=== PATIENT | female | born 1955 | race Caucasian/White ===

== ENCOUNTER → 2016-08-26 | Outpatient (CLI) | payer MEDICARE, OTHER ==
--- NOTE | 2016-08-26 13:42 | EST ---
DATE OF SERVICE: 08/26/2016 AGE: 61Y SEX: F HT: 64" WT: 225 lbs. Protocol Gregg: X Other: Stress Stage: 1 Dur. of Exercise: 5:00 *Heart Rate Blood Pressure *Rest: 101 Rest: 134/88 * *Max. Achieved: 140 Maximum BP: 169/93 85% PMHR: 137 100% PMHR: 161 *METS: 6.4 INDICATIONS: Chest pain. MEDICATIONS: Losartan, simvastatin, levothyroxine, Cymbalta, metformin, Abilify, vitamine, Januvia, Invokana. Patient was exercised for a total period of 5 minutes. Peak heart rate of 140 was achieved. Maximum blood pressure 169/93 mmHg was noted. Patient did not complain of any chest pain during the test. Test was terminated because patient got short of breath and tired. Resting EKG shows normal sinus rhythm with normal NE interval and QRS duration and normal ST-T waves. No ST-segment depression suggestive of ischemia is noted. IMPRESSION: 1. This stress test is not suggestive of ischemia. 2. Patient's exercise tolerance is below-average. 3. Patient did not complain of any anginal pain during the test.
== END | disposition home or self-care (01) ==
LOC: RADNMMAIN 09:53
PROVIDERS: ATTEND Family Medicine
DX: R07.89 Other chest pain (principal)
CPT/HCPCS: 93017

== ENCOUNTER → 2016-11-13 | Outpatient (CLI) | payer MEDICARE, OTHER ==
--- NOTE | 2016-11-13 12:20 | XR ---
EXAMINATION TYPE: XR chest 2V DATE OF EXAM: 11/13/2016 COMPARISON: Prior chest x-ray 12/22/2011 HISTORY: Chest pain TECHNIQUE: Frontal and lateral views of the chest are obtained. FINDINGS: There is no focal air space opacity, pleural effusion, or pneumothorax seen. The cardiac silhouette size is within normal limits. The osseous structures are intact. IMPRESSION: No acute cardiopulmonary process.
== END | disposition home or self-care (01) ==
LOC: RADXRMAIN 10:33
PROVIDERS: ATTEND Family Medicine
DX: R07.89 Other chest pain (principal)
CPT/HCPCS: 71020

== ENCOUNTER → 2018-01-25 | Outpatient (CLI) | payer MEDICARE, OTHER ==
--- NOTE | 2018-01-26 10:43 | MM ---
Reason for exam: screening (asymptomatic). Last mammogram was performed 9 years and 5 months ago. History: Patient is postmenopausal. Benign stereotactic core biopsy of the right breast, January 04, 2002. Benign stereotactic core biopsy of the right breast, December 04, 2000. 2 core biopsies of the right breast. Physical Findings: A clinical breast exam by your physician is recommended on an annual basis and results should be correlated with mammographic findings. MG 3D Screening Mammo W/Cad Bilateral CC and MLO view(s) were taken. Prior study comparison: August 18, 2008, right breast mammogram dig work up. August 14, 2008, bilateral digital screening mammogram. There are scattered fibroglandular densities. There is no discrete abnormality. ASSESSMENT: Negative, BI-RAD 1 RECOMMENDATION: Routine screening mammogram of both breasts in 1 year.
== END | disposition home or self-care (01) ==
LOC: RADMAMWWP 09:33
PROVIDERS: ATTEND Family Medicine
DX: Z12.31 Encounter for screening mammogram for malignant neoplasm of breast (principal)
CPT/HCPCS: 77063; 77067

== ENCOUNTER 2018-01-27 06:59 | Day surgery (SDC) | payer MEDICARE, OTHER ==
[2018-01-26 08:56] VITALS: BMI 36.7
--- NOTE | 2018-01-26 23:35 | P.GSHP ---
History of Present Illness H&P Date: 01/27/18 CHIEF COMPLAINT: Colon screen HISTORY OF PRESENT ILLNESS: The patient is a 62-year-old female who presents for colon screen. Lower endoscopy was offered for further evaluation and management. PAST MEDICAL HISTORY: Please see list. PAST SURGICAL HISTORY: Please see list. MEDICATIONS: Please see list. ALLERGIES: Please see list. SOCIAL HISTORY: No illicit drug use FAMILY HISTORY: No reports of Crohn disease or ulcerative colitis. REVIEW OF ORGAN SYSTEMS: CONSTITUTIONAL: No reports of fevers or chills. PHYSICAL EXAM: VITAL SIGNS: Stable GENERAL: Well-developed pleasant in no acute distress. HEENT: No scleral icterus. Extraocular movements grossly intact. Moist buccal mucosa. NECK: Supple without lymphadenopathy. CHEST: Unlabored respirations. Equal bilateral excursions. CARDIOVASCULAR: Regular rate and rhythm. Distal 2+ pulses. ABDOMEN: Soft, nontender, nondistended. MUSCULOSKELETAL: No clubbing, cyanosis, or edema. ASSESSMENT: 1. Colon screen. PLAN: 1. Recommend proceeding with a lower endoscopy Past Medical History Past Medical History: Asthma, Diabetes Mellitus, Fibromyalgia, GERD/Reflux, Hyperlipidemia, Hypertension, Sleep Apnea/CPAP/BIPAP, Thyroid Disorder Additional Past Medical History / Comment(s): migraines, cellulitis rt ankle after surgery History of Any Multi-Drug Resistant Organisms: None Reported Past Surgical History: Appendectomy, Cholecystectomy, Hysterectomy, Orthopedic Surgery Additional Past Surgical History / Comment(s): rt knee arthroscopy, surgery rt ankle (fx) Past Anesthesia/Blood Transfusion Reactions: Postoperative Nausea & Vomiting ( PONV) Smoking Status: Never smoker - Past Family History Father Family Medical History: Cancer Mother Family Medical History: Cancer Medications and Allergies Home Medications Medication Instructions Recorded Confirmed Type ARIPiprazole [Abilify] 15 mg PO DAILY 10/21/16 01/26/18 History Albuterol Inhaler [Ventolin Hfa 1 - 2 puff INHALATION Q6HR PRN 10/21/16 History Inhaler] Baclofen 10 mg PO TID 10/21/16 01/26/18 History Canagliflozin [Invokana] 300 mg PO DAILY 10/21/16 01/26/18 History DULoxetine HCL [Cymbalta] 60 mg PO DAILY 10/21/16 01/26/18 History Gabapentin [Neurontin] 100 mg PO TID 10/21/16 01/26/18 History Levothyroxine Sodium 125 mcg PO DAILY 10/21/16 01/26/18 History Liraglutide [Victoza 3-Andrey] 1.2 mg SQ DAILY 10/21/16 01/26/18 History Omeprazole 20 mg PO BID 10/21/16 01/26/18 History Simvastatin [Zocor] 40 mg PO HS 10/21/16 01/26/18 History metFORMIN HCL [Glucophage] 500 mg PO BID 10/21/16 01/26/18 History sitaGLIPtin [Januvia] 100 mg PO DAILY 10/21/16 01/26/18 History traZODone HCL 150 mg PO HS 10/21/16 01/26/18 History Ibuprofen [Motrin] 800 mg PO TID PRN 01/26/18 01/26/18 History Allergies Allergy/AdvReac Type Severity Reaction Status Date / Time JOSE Inhibitors AdvReac Rash/Hives Verified 01/26/18 08:38 morphine AdvReac Rash/Hives Verified 01/26/18 08:38 penicillin G AdvReac Rash/Hives Verified 01/26/18 08:38 rofecoxib [From Vioxx] AdvReac Rash/Hives Verified 01/26/18 08:38 Sulfa (Sulfonamide AdvReac Rash/Hives Verified 01/26/18 08:38 Antibiotics)
[~2018-01-27 06:59] MED LIST: LACTATED RINGERS 1,000 ML IV SCH
[2018-01-27] MEDS ORDERED: LIDOCAINE 1% 20 ML VIAL (10MG/ML) FOR IV START INTRADERMA ONE (07:31)
[2018-01-27 07:33] LABS: Glucose,Whole Blood 183 mg/dL (75-99)
[2018-01-27 07:35] VITALS: RESP 16; TEMP 98.6
[2018-01-27] MEDS ORDERED: PROPOFOL 10 MG/ML 20 ML VIAL IV ONE (07:53)
[2018-01-27] MEDS ORDERED: LIDOCAINE 1% INJ 10MG/ML (20 ML MDV) ONE (07:53)
--- NOTE | 2018-01-27 08:11 | P.PCN ---
Date of Procedure: 01/27/18 Description of Procedure: PREOPERATIVE DIAGNOSIS: Colonoscopy screening, first POSTOPERATIVE DIAGNOSIS: Colonoscopy screening, first Multiple tubular adenomas throughout the colon. Internal hemorrhoids, grade 1 OPERATION: Colonoscopy to the ileocecal valve and appendiceal orifice. Colonoscopy with multiple cold forceps biopsies. SURGEON: Liana Hernandez MD. ANESTHESIA: MAC. INDICATIONS: The patient is a 62-year-old female who presents for colonoscopy screening. Benefits and risks were described and informed consent was obtained. DESCRIPTION OF PROCEDURE: The patient had undergone Gatorade, MiraLAX and Dulcolax prep. She had been brought into the operating room and laid in the left lateral decubitus position. After adequate intravenous sedation, the rectum was examined with 2% lidocaine jelly. No external hemorrhoids were encountered. The rectal tone was within normal limits. No lesions were palpated in the rectal vault. An Olympus colonoscope was advanced until the ileocecal valve and appendiceal orifice were clearly viewed. The prep was good with visualization of the mucosal folds. The scope was removed with visualization of each mucosal fold. No scattered diverticulosis was encountered. Multiple colonic polyps were found and cold forcep biopsy. No evidence of focal colitis was found. Retroflexion of the scope demonstrated grade 1 internal hemorrhoids without active bleeding or inflammation. The colon was desufflated. The patient had tolerated the procedure well. Withdrawal time was over 6 minutes. FINDINGS: Internal hemorrhoids, grade 1 No external hemorrhoids No arteriovenous malformations. No scattered diverticulosis Removal of 2 polyps: - Cold forceps biopsy at 10 cm from the anal verge, 4 mm polyp. - Cold forceps biopsy at proximal transverse colon, 4 mm polyp. No focal colitis. RECOMMENDATIONS: Follow-up colonoscopy 5 years, 2022 Plan - Discharge Summary New Discharge Prescriptions: No Action ARIPiprazole [Abilify] 15 mg PO DAILY Omeprazole 20 mg PO BID Simvastatin [Zocor] 40 mg PO HS Liraglutide [Victoza 3-Andrey] 1.2 mg SQ DAILY Albuterol Inhaler [Ventolin Hfa Inhaler] 1 - 2 puff INHALATION Q6HR PRN PRN Reason: Shortness Of Breath traZODone HCL 150 mg PO HS metFORMIN HCL [Glucophage] 500 mg PO BID sitaGLIPtin [Januvia] 100 mg PO DAILY DULoxetine HCL [Cymbalta] 60 mg PO DAILY Baclofen 10 mg PO TID Levothyroxine Sodium 125 mcg PO DAILY Gabapentin [Neurontin] 100 mg PO TID Canagliflozin [Invokana] 300 mg PO DAILY Ibuprofen [Motrin] 800 mg PO TID PRN PRN Reason: Pain LORazepam [Ativan] 1 tab PO BID Discharge Medication List ARIPiprazole [Abilify] 15 mg PO DAILY 10/21/16 [History] Albuterol Inhaler [Ventolin Hfa Inhaler] 1 - 2 puff INHALATION Q6HR PRN [History] Baclofen 10 mg PO TID 10/21/16 [History] Canagliflozin [Invokana] 300 mg PO DAILY 10/21/16 [History] DULoxetine HCL [Cymbalta] 60 mg PO DAILY 10/21/16 [History] Gabapentin [Neurontin] 100 mg PO TID 10/21/16 [History] Levothyroxine Sodium 125 mcg PO DAILY 10/21/16 [History] Liraglutide [Victoza 3-Andrey] 1.2 mg SQ DAILY 10/21/16 [History] Omeprazole 20 mg PO BID 10/21/16 [History] Simvastatin [Zocor] 40 mg PO HS 10/21/16 [History] metFORMIN HCL [Glucophage] 500 mg PO BID 10/21/16 [History] sitaGLIPtin [Januvia] 100 mg PO DAILY 10/21/16 [History] traZODone HCL 150 mg PO HS 10/21/16 [History] Ibuprofen [Motrin] 800 mg PO TID PRN 01/26/18 [History] LORazepam [Ativan] 1 tab PO BID 01/27/18 [History]
[2018-01-27 08:23] LABS: Glucose,Whole Blood 173 mg/dL (75-99)
[2018-01-27 08:27] VITALS: BP 159/89; PULSE 87
== END 2018-01-27 08:56 | disposition home or self-care (01) ==
LOC: ORWHC2ENDO 06:59
PROVIDERS: ATTEND Surgery Plastic and Reconstructive Surgery
DX: Z12.11 Encounter for screening for malignant neoplasm of colon (principal); D12.3 Benign neoplasm of transverse colon; K63.5 Polyp of colon; K64.0 First degree hemorrhoids; J45.909 Unspecified asthma, uncomplicated; E11.9 Type 2 diabetes mellitus without complications; M79.7 Fibromyalgia; K21.9 Gastro-esophageal reflux disease without esophagitis; E78.5 Hyperlipidemia, unspecified; I10 Essential (primary) hypertension; E07.9 Disorder of thyroid, unspecified; G47.33 Obstructive sleep apnea (adult) (pediatric); G43.909 Migraine, unspecified, not intractable, without status migrainosus; Z99.89 Dependence on other enabling machines and devices; Z79.84 Long term (current) use of oral hypoglycemic drugs; Z79.899 Other long term (current) drug therapy; Z79.890 Hormone replacement therapy; Z90.49 Acquired absence of other specified parts of digestive tract; Z88.5 Allergy status to narcotic agent; Z88.0 Allergy status to penicillin; Z88.2 Allergy status to sulfonamides; Z88.8 Allergy status to other drugs, medicaments and biological substances; Z88.6 Allergy status to analgesic agent
CPT/HCPCS: 88305; 45380; J2001; J2704

== ENCOUNTER → 2019-12-07 | Outpatient (CLI) | payer MEDICARE, OTHER ==
--- NOTE | 2019-12-08 07:35 | MM ---
Reason for exam: screening (asymptomatic). Last mammogram was performed 1 year and 10 months ago. History: Patient is postmenopausal. Benign stereotactic core biopsy of the right breast, January 04, 2002. Benign stereotactic core biopsy of the right breast, December 04, 2000. 2 core biopsies of the right breast. Took hormonal contraceptives for 1 year. Physical Findings: A clinical breast exam by your physician is recommended on an annual basis and results should be correlated with mammographic findings. MG 3D Screening Mammo W/Cad Bilateral CC and MLO view(s) were taken. Prior study comparison: January 25, 2018, bilateral MG 3d screening mammo w/cad. August 18, 2008, right breast mammogram dig work up. There are scattered fibroglandular densities. There is chronic nodularity in the posterior left breast slight medial aspect. There is no discrete abnormality. ASSESSMENT: Negative, BI-RAD 1 RECOMMENDATION: Routine screening mammogram of both breasts in 1 year.
== END | disposition home or self-care (01) ==
LOC: RADMAMWWP 09:19
PROVIDERS: ATTEND Family Medicine
DX: Z12.31 Encounter for screening mammogram for malignant neoplasm of breast (principal)
CPT/HCPCS: 77063; 77067

== ENCOUNTER → 2020-07-31 | Outpatient (CLI) | payer MEDICARE, OTHER | END | disposition home or self-care (01) | LOC: LABWHC1 16:28 | PROVIDERS: ATTEND Family Medicine | DX: Z20.822 Contact with and (suspected) exposure to COVID-19 (principal); R05 Cough | CPT/HCPCS: U0003; U0005 ==

== ENCOUNTER → 2021-06-18 | Outpatient (CLI) | payer MEDICARE, OTHER ==
--- NOTE | 2021-06-18 15:33 | XR ---
Left shoulder HISTORY: Left shoulder pain 4 views of left shoulder, no comparisons Acromioclavicular joint shows mild arthropathy change. Distal acromial spur is suspected. Alignment, bone mineralization maintained. Some mild spurring present at the glenohumeral joint. Left lung apex as visualized is normal. IMPRESSION: Suspect some osteoarthritic change, correlate for impingement.
== END | disposition home or self-care (01) ==
LOC: RADXRMAIN 15:16
PROVIDERS: ATTEND Family Medicine
DX: M25.512 Pain in left shoulder (principal)

== ENCOUNTER → 2021-09-10 | Outpatient (CLI) | payer MEDICARE, OTHER ==
--- NOTE | 2021-09-11 12:16 | MM ---
Reason for exam: screening (asymptomatic). Last mammogram was performed 1 year and 9 months ago. History: Patient is postmenopausal. Benign stereotactic core biopsy of the right breast, January 04, 2002. Benign stereotactic core biopsy of the right breast, December 04, 2000. 2 core biopsies of the right breast. Took hormonal contraceptives for 1 year. Physical Findings: A clinical breast exam by your physician is recommended on an annual basis and results should be correlated with mammographic findings. MG 3D Screening Mammo W/Cad Bilateral CC and MLO view(s) were taken. Prior study comparison: December 07, 2019, bilateral MG 3d screening mammo w/cad. January 25, 2018, bilateral MG 3d screening mammo w/cad. There are scattered fibroglandular densities. There are few benign appearing round calcifications. There is no discrete abnormality. ASSESSMENT: Benign, BI-RAD 2 RECOMMENDATION: Routine screening mammogram of both breasts in 1 year.
== END | disposition home or self-care (01) ==
LOC: RADMAMWWP 16:47
PROVIDERS: ATTEND Family Medicine
DX: Z12.31 Encounter for screening mammogram for malignant neoplasm of breast (principal); Z78.0 Asymptomatic menopausal state
CPT/HCPCS: 77063; 77067

== ENCOUNTER → 2021-10-24 | Outpatient (CLI) | payer MEDICARE, OTHER ==
[2021-10-24 13:18] VITALS: BP 129/64; PULSE 85; RESP 18; TEMP 98
--- NOTE | 2021-10-24 13:19 | P.PAINPG ---
PQRS Measure Charge Sheet Comment: HISTORY OF PRESENT ILLNESS: 66 yr old female as a referral from Dr. Poon or severe and chronic cervical pain secondary to DDD, neuroforaminal stenoses, spinal stenosis, retrolisthesis and facet arthropathy for evaluation. She states her pain level is 6 out of 10 in intensity, sharp in the mid to lower aspects of her cervical spine with radiation of pain to the left shoulder and left upper extremity. Pain is provoked with extension and overhead reaching. Pain is relieved with medications (tramadol from Dr. Poon), Salon Pas patches, ice, heat, physical therapy in the past but was told to stop due to a rotator cuff tear, home stretching regimen, repositioning and rest. Past Medical History: Asthma, Diabetes Mellitus, Fibromyalgia, GERD/Reflux, Hyperlipidemia, Hypertension, Sleep Apnea/CPAP/BIPAP, Thyroid Disorder Past Surgical History: Appendectomy, Cholecystectomy, Hysterectomy, R Knee Arthroscopy, R Ankle Fx s/p repair Social History: Never smoker, No ETOH abuse, No illicit drug use. Family History: Father- CA. Mother- [place]. All: See list Meds: See list REVIEW OF ORGAN SYSTEMS: CONSTITUTIONAL: No fevers or chills. No recent weight loss. HEENT: No visual acuity loss, eye pain, difficulties with hearing. No nosebleeds. No difficulty swallowing. RESPIRATORY: Denies any troubles with breathing or dyspnea on exertion. CARDIOVASCULAR: Denies any chest pain, palpitations, or recent heart attacks. GASTROINTESTINAL: Denies fatty food intolerance. Has change in bowel habits and gas bloat. GENITOURINARY: Denies any blood in urine. Has increased urinary frequency. NEUROLOGICAL: + numbness and tingling along the distal extremities. No seizure disorders or headaches. MUSCULOSKELETAL: + back pain SKIN: No skin cancer. No rash. PSYCHIATRIC: Denies current depression or suicidal thoughts. ENDOCRINE: Denies current thyroid disorders. Denies any blood sugar glucose intolerance. HEME/LYMPHATIC: Denies any lumps and bumps around the neck. History of deep venous thrombosis. ALLERGY/IMMUNOLOGY: No immunoglobulin therapy. No immune deficiencies. BREAST: Denies current breast lumps, pain or nipple discharge. Physical Examinations : Constitutional : Cooperative , not in acute distress . HEENT: Neck supple. No Lymphadenopathy. Normal thyroid size . Eyes no ptosis , no icterus, no photophobia . Hearing intact. Normal oropharynx. No Thrush. Respiratory : Chest clear to auscultations bilaterally. No wheezing. No rhonchi. Cardiovascular : Regular rate and rhythm , S1 / S2. No S3 . No S4. Gastrointestinal : Abdomen soft. No tenderness. Bowel sounds x 4. No organomegaly . Genitourinary : Deferred. Neurologic : Cranial nerve II to XII intact. No focal neurological deficits. Psychiatric : alert & oriented x 3. Matching mood & appropriate affect. Judgment & insight intact. Lymphatic No Lymphadenopathy. Musculoskeletal : Cervical Spine Motor strength in the deltoid and biceps: Normal right side. Normal Left side Motor strength biceps and the wrist extensors: Normal right side . Normal left side Motor strength in the triceps muscle: Normal right side. Normal left side Deep tendon reflexes: Normal at the bi ceps. Normal at Brachioradialis. Normal at triceps Vertebral body TTP over C6, C7 Cervical facet loading test: positive bilaterally Spurling test: positive Neck distraction test: positive Matilde sign: positive bilaterally Lumbar spine Motor strength lower extremities ,thigh and legs 5/5 Right side , 5/5 Left side Deep tendon reflexes : Normal Knee Jerk. Normal Ankle Jerk Vertebral body tenderness over Lumbar facet Loading Test: positive Right / positive Left Range of motion of the lumbar spine Flexion 30 degrees, extension 10 degrees Straight Leg Raise test: Left/ Right positive at degree Neisha test: positive right / positive left. Severe tenderness over the Sacroiliac joint on the Right / Left sides Gaenslen test: positive bilaterally Seated flexion test: positive bilaterally. Sacral spine : Severe tenderness over the Sacroiliac joint: right side / left side Range of motion: Flexion of the lumbar spine <60 degrees Range of motion: Extension of the lumbar spine <20 degrees Gaenslen's Test positive Jerome's Test positive Neisha test: positive right side / left side Thigh Thrust Test Sacral Thrust Test Imaging: MRI without contrast of the cervical spine from 10/08/21 reviewed Assessment/ Plan : Cervical DDD, cervical stenosis Recommendation of L paramedian C6-C7 #1. May need a series of injections, up to 3 within a six-month timeframe, for optimal pain relief. Risks, benefits of procedure discussed and patient verbalized understanding. Denies aspirin or anti- coagulant us. Admits to a medical history of diabetes. Protocol for discontinuation/continuation of medications darlin procedure discussed. All questions answered. I have spent greater than 50 minutes on patient care today. Dr Nguyen was available by phone for the evaluation of this patient. The time was used to review the medical records including relevant urine studies and Prescription history (MAPs), review of the available imaging, evaluation and examination of the patient, coordination of care with the medical staff and if applicable referring physicians, as well as creation of the medical record PQRS Narrative: Smoking Status Never smoker Home Medications: Ambulatory Orders ARIPiprazole [Abilify] 15 mg PO DAILY 10/21/16 Albuterol Inhaler (Mhu) [Ventolin Hfa Inhaler] 1 - 2 puff INHALATION Q6HR PRN 10/21/16 Baclofen 10 mg PO TID 10/21/16 Canagliflozin [Invokana] 300 mg PO DAILY 10/21/16 DULoxetine HCL [Cymbalta] 60 mg PO DAILY 10/21/16 Gabapentin [Neurontin] 100 mg PO TID 10/21/16 Levothyroxine Sodium 125 mcg PO DAILY 10/21/16 Liraglutide [Victoza 3-Andrey] 1.2 mg SQ DAILY 10/21/16 Omeprazole 20 mg PO BID 10/21/16 Simvastatin [Zocor] 40 mg PO HS 10/21/16 metFORMIN HCL [Glucophage] 500 mg PO BID 10/21/16 sitaGLIPtin [Januvia] 100 mg PO DAILY 10/21/16 traZODone HCL 150 mg PO HS 10/21/16 Ibuprofen [Motrin] 800 mg PO TID PRN 01/26/18 LORazepam [Ativan] 1 tab PO BID 01/27/18 Controlled Substance Measures - Controlled Substance Measures Is patient prescribed a controlled substance at discharge?: No
== END ==
LOC: PNWHC3 12:55
PROVIDERS: ATTEND Specialist
DX: M50.10 Cervical disc disorder with radiculopathy, unspecified cervical region (principal); M48.02 Spinal stenosis, cervical region; J45.909 Unspecified asthma, uncomplicated; E11.9 Type 2 diabetes mellitus without complications; E78.5 Hyperlipidemia, unspecified; I10 Essential (primary) hypertension; Z79.84 Long term (current) use of oral hypoglycemic drugs; Z88.0 Allergy status to penicillin; Z88.2 Allergy status to sulfonamides; Z88.8 Allergy status to other drugs, medicaments and biological substances; Z88.1 Allergy status to other antibiotic agents; Z88.5 Allergy status to narcotic agent
CPT/HCPCS: 99211

== ENCOUNTER 2021-11-21 07:34 | Day surgery (SDC) | payer MEDICARE, OTHER ==
[2021-11-15 16:01] VITALS: BMI 37.8
[2021-11-21 07:56] LABS: Glucose,Whole Blood 311 mg/dL (70-110)
[2021-11-21] MEDS ORDERED: LACTATED RINGERS 1,000 ML IV ONE (07:57)
[2021-11-21 07:58] VITALS: TEMP 98.6
[2021-11-21] MEDS ORDERED: DEXAMETHASONE SOD PHOSPHATE 10 MG/ML 1 ML VIAL ONE (08:27)
[2021-11-21] MEDS ORDERED: MIDAZOLAM 2 MG/2 ML VIAL ONE (08:27)
[2021-11-21] MEDS ORDERED: fentaNYL (PF) 50 MCG/ML 2 ML AMP ONE (08:27)
[2021-11-21] MEDS ORDERED: IOPAMIDOL M200 10 ML VIAL ONE (08:27)
--- NOTE | 2021-11-21 08:49 | P.PCN ---
Date of Procedure: 11/21/21 Description of Procedure: Pre- and Post-operative Diagnosis: Cervical radiculopathy, cervical degenerative disc disease Procedure: left-sided C6-C7 Inter-Laminar Cervical Epidural Steroid Injection under biplanar fluoroscopy Surgeon: Anabela Alves Anesthesia: Local: 1% Lidocaine, IV sedation : Versed 2 mg, and fentanyl 100 g. Complications: None. Estimated blood loss: None Specimens removed: None Fluoroscopic image: saved to electronic medical records. Indications for Procedure: The patient has been suffering from neck pain and pain radiating to the upper extremity . Inadequate pain control with pharmacologic regimen. An inter-laminar approach cervical epidural steroid injection was scheduled for the patient. Procedure and Findings: The patient was seen and examined in the holding area. The written informed consent was obtained after explaining the risks, benefits, alternatives of the procedure to the patient. The patient was brought to the procedure room and was placed in the prone position on the operating table. A pillow was placed under the upper chest. Standard anesthesia monitoring was done through out the procedure. Timeout was completed. The skin preparation was done with ChloraPrep 1 and draping was done in usual sterile fashion. Sterile technique was observed throughout the procedure. Under fluoroscopic guidance, C6-C7 inter-laminar space was identified. 3 ml of 1% Lidocaine was injected with a 25 gauge needle to achieve adequate local anesthesia of the skin and subcutaneous tissue. A 20 gauge, 3.5 inch Tuohy type epidural needle was placed and gradually advanced up to the epidural space using loss of resistance technique and fluoroscopic guidance. Lateral, oblique fluoroscopic views confirm the needle position. No paresthesia was noted. A negative aspiration was confirmed and then 1 ml of Isovue-200 was injected. A good dye spread was seen in the epidural space and it was negative for any intrathecal, intraneural or intravascular spread. A total of 6 ml solution containing 10 mg Dexamethasone, and 5 ml preservative-free Normal Saline was injected slowly with intermittent aspiration. The needle was removed intact, area was cleaned and bandage was applied. Disposition : The patient tolerated the procedure very well. The patient was transferred to the recovery room and remained stable until discharged home. The patient was given detailed discharge instructions for bleeding, infection, increased pain at the injection site, and was advised to seek immediate medical attention should significant side effects develop. The patient will be followed up with our Pain Clinic within 4 weeks for follow-up visit.
[2021-11-21 09:00] LABS: Glucose,Whole Blood 311 mg/dL (70-110)
[2021-11-21] MEDS ORDERED: LACTATED RINGERS 1,000 ML IV SCH (09:00)
[2021-11-21 09:04] VITALS: RESP 18
[2021-11-21] MEDS ORDERED: INSULIN ASPART (NovoLOG) 100 UNIT/ML VIAL SQ ONE (09:15)
[2021-11-21 09:40] VITALS: BP 126/61; PULSE 81
--- NOTE | 2021-11-21 09:59 | FL ---
Fluoroscopy HISTORY: Pain 17 seconds fluoroscopy time supplied to the referring clinician. 4 intraoperative C-arm images docum ent the procedure. See dictated report from anesthesia.
[2021-11-21] MEDS ORDERED: INSULIN ASPART (NovoLOG) 100 UNIT/ML VIAL SQ SCH (12:30)
== END 2021-11-21 10:02 | disposition home or self-care (01) ==
LOC: ORPAIN 07:34
DX: M50.30 Other cervical disc degeneration, unspecified cervical region (principal); Z88.0 Allergy status to penicillin; Z88.5 Allergy status to narcotic agent; Z88.8 Allergy status to other drugs, medicaments and biological substances; M79.7 Fibromyalgia; J45.909 Unspecified asthma, uncomplicated; E11.9 Type 2 diabetes mellitus without complications; I10 Essential (primary) hypertension; E78.00 Pure hypercholesterolemia, unspecified; Z88.2 Allergy status to sulfonamides; Z88.6 Allergy status to analgesic agent; Z79.899 Other long term (current) drug therapy; Z79.890 Hormone replacement therapy; Z79.84 Long term (current) use of oral hypoglycemic drugs; Z80.9 Family history of malignant neoplasm, unspecified
CPT/HCPCS: 62321; J2250; J1100; J3010; Q9966; 99152

== ENCOUNTER 2022-02-13 08:59 | Day surgery (SDC) | payer MEDICARE, OTHER ==
[~2022-02-13 08:59] MED LIST changes: +LIDOCAINE 1% (10MG/ML) FOR IV START INTRADERMA PRN
[2022-02-13 09:22] VITALS: TEMP 96.5
[2022-02-13 09:36] LABS: Glucose,Whole Blood 236 mg/dL (70-110)
[2022-02-13] MEDS ORDERED: INSULIN ASPART (NovoLOG) 100 UNIT/ML VIAL SQ ONE (09:53)
[2022-02-13] MEDS ORDERED: MIDAZOLAM 2 MG/2 ML VIAL ONE (09:56)
[2022-02-13] MEDS ORDERED: IOPAMIDOL M200 10 ML VIAL ONE (09:56)
[2022-02-13] MEDS ORDERED: fentaNYL (PF) 50 MCG/ML 2 ML AMP ONE (09:56)
[2022-02-13] MEDS ORDERED: DEXAMETHASONE SOD PHOSPHATE 10 MG/ML 1 ML VIAL ONE (09:56)
--- NOTE | 2022-02-13 10:07 | P.PCN ---
Date of Procedure: 02/13/22 Procedure(s) Performed: . PROCEDURE 1. Cervical epidural steroid injection under fluoroscopic guidance, C6-7 (fluoroscopy images available in the radiology department ) 2. Cervical epidurogram. PREOPERATIVE DIAGNOSIS: 1- Cervical Degenerative Disc Diseases 2- Cervical radiculopathy. POSTOPERATIVE DIAGNOSIS: : 1- Cervical Degenerative Disc Diseases , 2- Cervical radiculopathy. ANESTHESIA: moderate sedation, with Versed 2 mg and Fentanyl 100 mcg. Sedation start time : 0 957 Sedation end time : 1005 EBL 0 PROCEDURE INDICATION: The patient with neck pain and radiculitis unresponsive to conservative treatment consents for procedure. PROCEDURE DESCRIPTION / TECHNIQUE: The patient was seen and identified in the preoperative area. Risks, benefits, complications, including but not limited to infections ,bleeding , allergic reactions to the medications ,and not complete pain releife, and alternatives were discussed with the patient, the patient agreed to proceed with the procedure and signed the consent. Patient was taken to the OR and time out was completed. The patient was placed in the prone position on the procedure table. A pillow was placed under the patients chest to increase the cervical interlaminar space. The cervical area was prepped and draped in the usual sterile fashion. Vital signs were closely monitored during the procedure. Conscious sedation was used during the procedure to decrease patients anxiety. Using anterior-posterior fluoroscopy, the C6-7 interlaminar space was identified and the skin over this site was marked and then infiltrated with 1% lidocaine subcutaneously. Subsequently, a 20-gauge 3-1/2-inch Tuohy epidural needle was inserted and advanced toward the epidural space by means of the ``hanging-drop technique and guided by AP and lateral fluoroscopy. The correct needle position in the epidural space was verified with the injection of 2 mL of the water soluble contrast dye Isovue-200 and observing an excellent epidurogram with the epidural spread of the dye, after negative aspiration for blood and CSF and in the absence of paresthesias. then, mixture containing 15 mg Dexamethasone and 2 ml of preservative-free normal saline injected and a washout of epidurogram was seen. Needle was withdrawn intact, skin was cleansed, and bandages were applied. Complications= none. Disposition= patient was placed in supine position and transferred to the recovery room area in stable condition and there was no evidence of upper or lower extremity motor or sensory deficit after the procedure patient was discharged from recovery room after discharge criteria met and home discharge instructions was given by the staff and patient will follow with the pain clinic in 2-4 weeks
[2022-02-13] MEDS ORDERED: IV FLUID CONTINUATION 1,000 ML IV ONE (10:12)
[2022-02-13 10:15] VITALS: RESP 16
[2022-02-13 10:30] VITALS: BP 133/79; PULSE 95
[2022-02-13 10:43] LABS: Glucose,Whole Blood 207 mg/dL (70-110)
--- NOTE | 2022-02-13 10:51 | FL ---
EXAMINATION TYPE: FL guided pain mgmt statistic DATE OF EXAM: 02/13/2022 HISTORY: Fluoroscopy time 4 seconds of fluoroscopy provided. IMPRESSION: 1. Fluoroscopy time.
== END 2022-02-13 10:46 | disposition home or self-care (01) ==
LOC: ORPAIN 08:59
PROVIDERS: ATTEND Specialist
DX: M50.323 Other cervical disc degeneration at C6-C7 level (principal); M54.12 Radiculopathy, cervical region; Z88.8 Allergy status to other drugs, medicaments and biological substances
CPT/HCPCS: 99152; 62321; J2250; J1100; J3010; Q9966

== ENCOUNTER → 2022-05-22 | Outpatient (CLI) | payer MEDICARE, OTHER ==
[2022-05-22 08:42] VITALS: BP 151/81; PULSE 94; RESP 18; TEMP 98.3
--- NOTE | 2022-05-22 15:24 | P.PAINPG ---
PQRS Measure Charge Sheet Comment: A 67 yr old female with a history of severe and chronic neck pain secondary to cervical DDD and spondylosis with facet arthropathy without myelopathy presents today for evaluation s/p EDILIA C6-7. Pt states she experienced 70 % pain relief x 1 wk s/p procedure. Pain level is currently at 7 /10 in intensity, constant, localized in the mid cervical spine, sharp/ shooting towards the upper shoulders. Pain is provoked by PT in the past, and rotation. Pain is alleviated with medications (Naproxen, Aleve OTC), repositioning and rest. Interventional pain procedures completed include EDILIA C6-C7 x3 Patient is currently on Naproxen, Aleve OTC Patient denies any side effects of the medication(s), denies excessive drowsiness or sleepiness, denies suicidal ideation and reports that the current pain medication is helping to control the pain and improve activities of daily living. Patient denies any motor or sensory deficits. Patient denies any fever or night sweats, denies any change in the bowel movements or urination. Physical Examination: -Constitutional: Cooperative. Not in acute distress . - Neurologic: Cranial nerve II to XII intact. No focal neurological deficits. - Psychatric: Alert & oriented x 3. Matching mood & appropriate affect. Judgment and insight intact. - Musculoskeletal: Cervical spine: Muscle bulk/ tone/ strength in the bilateral upper extremities normal Vertebral body tenderness to palpation over Spurling test positive Distraction test positive TTP over BL C4-C5, C5-C6 facets Facet loading test positive Thoracic spine Muscle bulk / tone/ strength in the bilateral paraspinal muscles normal Vertebral body tender to palpation over Facet loading test positive Lumbar spine: Motor bulk/ tone/ strength lower extremities , thigh and legs : 5/5 Deep tendon reflexes : Normal Knee Jerk. Normal Ankle Jerk . Vertebral body tenderness to palpation over Lumbar Facet Loading Test positive Straight Leg Raise: positive at 30 degrees right side/ left side Gaenslen's Test positive Sacral spine : Severe tenderness over the Sacroiliac joint: right side / left side Range of motion: Flexion of the lumbar spine <60 degrees Range of motion: Extension of the lumbar spine <20 degrees Gaenslen's Test positive Neisha test: positive right side / left side Thigh Thrust Test Sacral Thrust Test Assessment and plan: Chronic neck pain secondary to cervical DDD, spondylosis with facet arthropathy without myelopathy Recommendation of BL facet block of the medial branches C4-C5, C5-C6 #1. May need a series of injections, up until RFA, for optimal pain relief. Risks, benefits of procedure discussed and pt verbalized understanding. Admits to anticoagulant use or medical history of diabetes. Protocol for discontinuation/ continuation of medications darlin procedure discussed. Ultram 50mg #90 w 1 RF. Use, side effects and adverse reactions discussed and pt verbalized understanding. Narcotic / Opiate agreement signed/ discussed. All patient questions answered I have spent less than 30 minutes on patient care today. Dr Nguyen was available by phone for the evaluation of this patient. The time was used to review the medical records including relevant urine studies and Prescription history (MAPs), review of the available imaging, evaluation and examination of the patient, coordination of care with the medical staff and if applicable referring physicians, as well as creation of the medical record - Pain Location Bilateral Neck Non-Pharmacological Interventions: Heat, Ice, Inactivity, Physical Therapy, Stretching Pharmacological Interventions: Epidural, PRN Medication PQRS Narrative: Smoking Status Never smoker Hx Alcohol Use (MH) No Home Medications: Ambulatory Orders ARIPiprazole [Abilify] 15 mg PO DAILY 10/21/16 Albuterol Inhaler [Ventolin Hfa Inhaler] 2 puff INHALATION Q6HR PRN 10/21/16 DULoxetine HCL [Cymbalta] 60 mg PO BID 10/21/16 Levothyroxine Sodium 112 mcg PO DAILY 10/21/16 metFORMIN HCL [Glucophage] 1,000 mg PO BID 10/21/16 LORazepam [Ativan] 0.5 mg PO DAILY PRN 01/27/18 Aspirin [Adult Low Dose Aspirin EC] 81 mg PO DAILY 11/15/21 Atorvastatin [Lipitor] 20 mg PO DAILY 11/15/21 Brexpiprazole [Rexulti] 0.5 mg PO DAILY 11/15/21 Estrogens, Conjugated Cream [Premarin Vaginal Cream] 1 applicator VAGINAL HS 11/15/21 Insulin Aspart [NovoLOG Flexpen] 10 units SQ AC-TID 11/15/21 Insulin Glargine [Lantus Vial] 65 unit SQ HS 11/15/21 Melatonin 5 mg PO HS 11/15/21 Montelukast [Singulair] 10 mg PO HS 11/15/21 Multivitamins, Thera [Multivitamin (formulary)] 1 tab PO DAILY 11/15/21 Naproxen Sodium [Aleve] 220 - 440 mg PO BID PRN 11/15/21 Naproxen [Naprosyn] 500 mg PO BID PRN 11/15/21 [place]-3 Fatty Acids [Lib[place]-3] 2,000 mg PO BID 11/15/21 Potassium Gluconate [Potassium Gluconate ER] 595 mg PO DAILY 11/15/21 Semaglutide [Rybelsus] 14 mg PO DAILY 11/15/21 amLODIPine [Norvasc] 5 mg PO DAILY 11/15/21 lisinopriL [Zestril] 30 mg PO DAILY 11/15/21 traMADol HCl [Ultram] 50 mg PO Q8HR PRN 11/15/21 traMADol HCl [Ultram] 50 mg PO Q8HR PRN 30 Days #90 tab 05/22/22 Controlled Substance Measures - Controlled Substance Measures Is patient prescribed a controlled substance at discharge?: Yes When asked, does pt state using other controlled substances?: No If prescribed controlled substance>3 days was MAPS reviewed?: Yes If Rx opioid, was Start Talking consent form obtained?: Yes Was information provided regarding opioid addiction?: Yes
== END ==
LOC: PNWHC3 07:49
PROVIDERS: ATTEND Specialist
DX: M47.812 Spondylosis without myelopathy or radiculopathy, cervical region (principal); M50.30 Other cervical disc degeneration, unspecified cervical region; Z79.82 Long term (current) use of aspirin; Z88.0 Allergy status to penicillin; Z88.8 Allergy status to other drugs, medicaments and biological substances; Z88.5 Allergy status to narcotic agent; Z88.2 Allergy status to sulfonamides
CPT/HCPCS: 99211

== ENCOUNTER → 2022-09-08 | Outpatient (CLI) | payer MEDICARE, OTHER ==
[2022-09-08 14:11] VITALS: BP 121/78; PULSE 85; RESP 18; TEMP 98.4
--- NOTE | 2022-09-08 15:34 | P.PAINPG ---
PQRS Measure Charge Sheet Comment: A 67 yr old female with a history of severe and chronic neck pain secondary to cervical DDD and spondylosis with facet arthropathy without myelopathy presents today for evaluation s/p BL MBB C4-5, C5-6 #2 and medication refills. Pt states she experienced 100 % pain relief x 3 days s/p both procedures. Pain level is provoked at 6 /10 in intensity, constant, localized in the mid cervical spine, sharp in character w shooting towards the BL shoulders. Pain is provoked by hyperextension. Pain is alleviated with medications (tramadol, naproxen), injections, heat, hot baths, repositioning and rest. Interventional pain procedures completed include BL MBB C4-C6 x2 Patient is currently on Tramadol, Naproxen Patient denies any side effects of the medication(s), denies excessive drowsiness or sleepiness, denies suicidal ideation and reports that the current pain medication is helping to control the pain and improve activities of daily living. Patient denies any motor or sensory deficits. Patient denies any fever or night sweats, denies any change in the bowel movements or urination. Physical Examination: -Constitutional: Cooperative. Not in acute distress . - Neurologic: Cranial nerve II to XII intact. No focal neurological deficits. - Psychatric: Alert & oriented x 3. Matching mood & appropriate affect. Judgment and insight intact. - Musculoskeletal: Cervical spine: Muscle bulk/ tone/ strength in the bilateral upper extremities normal Vertebral body tenderness to palpation over Spurling test positive Distraction test positive Facet loading test positive TTP over BL C4-C5, C5-C6 facets Thoracic spine Muscle bulk / tone/ strength in the bilateral paraspinal muscles normal Vertebral body tender to palpation over Facet loading test positive TTP Lumbar spine: Motor bulk/ tone/ strength lower extremities , thigh and legs : 5/5 Deep tendon reflexes : Normal Knee Jerk. Normal Ankle Jerk . Vertebral body tenderness to palpation over Lumbar Facet Loading Test positive Straight Leg Raise: positive at 30 degrees right side/ left side Gaenslen's Test positive Sacral spine : Severe tenderness over the Sacroiliac joint: right side / left side Range of motion: Flexion of the lumbar spine <60 degrees Range of motion: Extension of the lumbar spine <20 degrees Gaenslen's Test positive R / L Neisha test: positive right side / left side Thigh Thrust Test positive R / L Sacral Thrust Test positive R/ L Assessment and plan: Chronic neck pain secondary to cervical DDD, spondylosis with facet arthropathy without myelopathy Recommendation of BL RFA C4-C5, C5-C6. Pt exhibited sufficient and substantial pain relief w prior facet blocks of the medial branches. Risks, benefits of procedure discussed and pt verbalized understanding. Admits to anticoagulant use or medical history of diabetes. Protocol for discontinuation/ continuation of medications darlin procedure discussed. Refill of Tramadol All questions answered. I have spent less than 30 minutes on patient care today. Dr Nguyen was available by phone for the evaluation of this patient. The time was used to review the medical records including relevant urine studies and Prescription history (MAPs), review of the available imaging, evaluation and examination of the patient, coordination of care with the medical staff and if applicable referring physicians, as well as creation of the medical record PQRS Narrative: Smoking Status Never smoker Hx Alcohol Use (MH) No Home Medications: Ambulatory Orders ARIPiprazole [Abilify] 15 mg PO DAILY 10/21/16 Albuterol Inhaler [Ventolin Hfa Inhaler] 2 puff INHALATION Q6HR PRN 10/21/16 DULoxetine HCL [Cymbalta] 60 mg PO BID 10/21/16 Levothyroxine Sodium 112 mcg PO DAILY 10/21/16 metFORMIN HCL [Glucophage] 1,000 mg PO BID 10/21/16 LORazepam [Ativan] 0.5 mg PO DAILY PRN 01/27/18 Atorvastatin [Lipitor] 20 mg PO DAILY 11/15/21 Brexpiprazole [Rexulti] 0.5 mg PO DAILY 11/15/21 Estrogens, Conjugated Cream [Premarin Vaginal Cream] 1 applicator VAGINAL HS 11/15/21 Insulin Aspart [NovoLOG Flexpen] 10 units SQ AC-TID 11/15/21 Insulin Glargine [Lantus Vial] 65 unit SQ HS 11/15/21 Melatonin 5 mg PO HS 11/15/21 Montelukast [Singulair] 10 mg PO HS 11/15/21 Multivitamins, Thera [Multivitamin (formulary)] 1 tab PO DAILY 11/15/21 Naproxen Sodium [Aleve] 220 - 440 mg PO BID PRN 11/15/21 [place]-3 Fatty Acids [[place]-3] 2,000 mg PO BID 07/01/22 Potassium Gluconate [Potassium Gluconate ER] 595 mg PO DAILY 11/15/21 Semaglutide [Rybelsus] 14 mg PO DAILY 11/15/21 amLODIPine [Norvasc] 5 mg PO DAILY 11/15/21 lisinopriL [Zestril] 30 mg PO DAILY 11/15/21 traMADol HCL 50 mg PO Q8H PRN 30 Days #90 tab 05/26/22 Controlled Substance Measures - Controlled Substance Measures Is patient prescribed a controlled substance at discharge?: Yes When asked, does pt state using other controlled substances?: Yes If prescribed controlled substance>3 days was MAPS reviewed?: Yes
== END ==
LOC: PNWHC3 13:09
PROVIDERS: ATTEND Specialist
DX: M50.322 Other cervical disc degeneration at C5-C6 level (principal); M47.812 Spondylosis without myelopathy or radiculopathy, cervical region; M50.321 Other cervical disc degeneration at C4-C5 level; Z51.81 Encounter for therapeutic drug level monitoring; Z88.0 Allergy status to penicillin; Z88.2 Allergy status to sulfonamides; Z88.5 Allergy status to narcotic agent; Z88.6 Allergy status to analgesic agent; Z88.8 Allergy status to other drugs, medicaments and biological substances
CPT/HCPCS: 80307; G0482; G0463; 99212

== ENCOUNTER 2023-04-16 17:31 | Emergency (ER) | payer MEDICARE, OTHER ==
--- NOTE | 2023-04-16 18:39 | ED ---
General Adult HPI - General Source: patient Mode of arrival: wheelchair Limitations: no limitations <Meir Black - Last Filed: 04/16/23 18:39> <Maryana Simental - Last Filed: 04/16/23 21:01> - General Chief complaint: Upper Respiratory Infection Stated complaint: covid symptoms Time Seen by Provider: 04/16/23 18:39 - History of Present Illness Initial comments: 68-year-old female presenting to the ED with a chief complaint of nausea and vomiting. Patient states last night started to experience some cough, nausea, vomiting, diarrhea. Patient states symptoms continuous today and notes today she got short of breath prompting presentation to the ED for further evaluation. (Meir Black) 68-year-old female presents to the emergency department chief complaint of cough, congestion, muscle aches 2 days. She also admits to nausea with diarrhea. She states that this started yesterday. She states that she felt slightly short of breath earlier today but this has improved. She does have an inhaler at home. She is concerned for Covid 19. (Maryana Simental) - Related Data Home Medications Medication Instructions Recorded Confirmed ARIPiprazole [Abilify] 15 mg PO DAILY 10/21/16 10/02/22 Albuterol Inhaler [Ventolin Hfa 2 puff INHALATION Q6HR PRN 10/21/16 10/02/22 Inhaler] DULoxetine HCL [Cymbalta] 60 mg PO BID 10/21/16 10/02/22 Levothyroxine Sodium 112 mcg PO DAILY 10/21/16 10/02/22 metFORMIN HCL [Glucophage] 1,000 mg PO BID 10/21/16 10/02/22 LORazepam [Ativan] 0.5 mg PO DAILY PRN 01/27/18 10/02/22 Atorvastatin [Lipitor] 20 mg PO DAILY 11/15/21 10/02/22 Brexpiprazole [Rexulti] 0.5 mg PO DAILY 11/15/21 10/02/22 Estrogens, Conjugated Cream 1 applicator VAGINAL HS 11/15/21 10/02/22 [Premarin Vaginal Cream] Insulin Aspart [NovoLOG Flexpen] 10 units SQ AC-TID 11/15/21 10/02/22 Insulin Glargine [Lantus Vial] 65 unit SQ HS 11/15/21 10/02/22 Melatonin 5 mg PO HS 11/15/21 10/02/22 Montelukast [Singulair] 10 mg PO HS 11/15/21 10/02/22 Multivitamins, Thera [Multivitamin 1 tab PO DAILY 11/15/21 10/02/22 (formulary)] Naproxen Sodium [Aleve] 220 - 440 mg PO BID PRN 11/15/21 10/02/22 [place]-3 Fatty Acids [[place]-3] 2,000 mg PO BID 11/15/21 10/02/22 Potassium Gluconate [Potassium 595 mg PO DAILY 11/15/21 10/02/22 Gluconate ER] Semaglutide [Rybelsus] 14 mg PO DAILY 11/15/21 10/02/22 amLODIPine [Norvasc] 5 mg PO DAILY 11/15/21 10/02/22 lisinopriL [Zestril] 30 mg PO DAILY 11/15/21 10/02/22 Previous Rx's Medication Instructions Recorded traMADol HCL 50 mg PO Q8H PRN 30 Days #90 tab 09/08/22 Nirmatrelvir/Ritonavir [Paxlovid See Rx Instructions .ROUTE 04/16/23 2X150 mg-100 mg (Eua)] .COMPLEX #30 tab Allergies Allergy/AdvReac Type Severity Reaction Status Date / Time penicillin G Allergy Rash/Hives, Verified 04/16/23 18:08 itching, dyspnea JOSE Inhibitors AdvReac Rash/Hives Verified 04/16/23 18:08 morphine AdvReac Rash/Hives Verified 04/16/23 18:08 rofecoxib [From Vioxx] AdvReac Rash/Hives Verified 04/16/23 18:08 Sulfa (Sulfonamide AdvReac Rash/Hives Verified 04/16/23 18:08 Antibiotics) Review of Systems ROS Other: All systems not noted in ROS Statement are negative. <Meir Black - Last Filed: 04/16/23 18:39> ROS Other: All systems not noted in ROS Statement are negative. <Maryana Simental - Last Filed: 04/16/23 21:01> ROS Statement: Those systems with pertinent positive or pertinent negative responses have been documented in the HPI. Past Medical History Past Medical History: Asthma, Diabetes Mellitus, Deep Vein Thrombosis (DVT), GERD/Reflux, Hyperlipidemia, Hypertension, Musculoskeletal Disorder, Osteoarthritis (OA), Renal Disease, Sleep Apnea/CPAP/BIPAP, Thyroid Disorder Additional Past Medical History / Comment(s): Cervical disc pain, bilat shoulder pain; occ NT arms, legs.. Not using cpap. Edema BLE. Poss DVT hx. History of Any Multi-Drug Resistant Organisms: None Reported Past Surgical History: Appendectomy, Cholecystectomy, Hysterectomy, Orthopedic Surgery, Tubal Ligation Additional Past Surgical History / Comment(s): ORIF Rt lower leg/ankle. PAIN CLINIC PROCEURES Past Anesthesia/Blood Transfusion Reactions: No Reported Reaction Past Psychological History: Anxiety, Depression Smoking Status: Never smoker - Past Family History Father Family Medical History: Cancer Mother Family Medical History: Cancer Brother(s) Family Medical History: Cancer Additional Family Medical History / Comment(s): prostate cancer <SofiaMeir - Last Filed: 04/16/23 18:39> General Exam Limitations: no limitations General appearance: alert Neck exam: Present: normal inspection Extremities exam: Present: normal inspection Back exam: Present: normal inspection <LgdavidMeir bradford Filed: 04/16/23 18:39> Limitations: no limitations General appearance: alert, in no apparent distress Head exam: Present: atraumatic, normocephalic, normal inspection Eye exam: Present: normal appearance, PERRL, EOMI. Absent: scleral icterus, conjunctival injection, periorbital swelling ENT exam: Present: normal exam, mucous membranes moist Neck exam: Present: normal inspection. Absent: tenderness, meningismus, lymphadenopathy Respiratory exam: Present: normal lung sounds bilaterally. Absent: respiratory distress, wheezes, rales, rhonchi, stridor Cardiovascular Exam: Present: regular rate, normal rhythm, normal heart sounds. Absent: systolic murmur, diastolic murmur, rubs, gallop, clicks GI/Abdominal exam: Present: soft, normal bowel sounds. Absent: distended, tenderness, guarding, rebound, rigid Extremities exam: Present: normal inspection, full ROM, normal capillary refill. Absent: tenderness, pedal edema, joint swelling, calf tenderness Back exam: Present: normal inspection Neurological exam: Present: alert, oriented X3 Psychiatric exam: Present: normal affect, normal mood Skin exam: Present: warm, dry, intact, normal color. Absent: rash <Maryana Simental - Last Filed: 04/16/23 21:01> Course Vital Signs 04/16/23 18:05 Temperature 98.9 F Pulse Rate 71 Respiratory 16 Rate Blood Pressure 142/66 O2 Sat by Pulse 97 Oximetry Medical Decision Making <Meir Black - Last Filed: 04/16/23 18:39> <Maryana Simental - Last Filed: 04/16/23 21:01> - Medical Decision Making Quicknote portion performed. Signed Meir Black PA-C (Meir Black) Was pt. sent in by a medical professional or institution ([facility], LINER HELPER, urgent care, hospital, or care home...) When possible be specific @ -No Did you speak to anyone other than the patient for history (EMS, parent, family, police, friend...)? What history was obtained from this source @ -No Did you review nursing and triage notes (agree or disagree)? Why? @ -I reviewed and agree with nursing and triage notes Were old charts reviewed (outside hosp., previous admission, EMS record, old EKG, old radiological studies, urgent care reports/EKG's, care home records)? Report findings @ -No old charts were reviewed Differential Diagnosis (chest pain, altered mental status, abdominal pain women, abdominal pain men, vaginal bleeding, weakness, fever, dyspnea, syncope, headache, dizziness, GI bleed, back pain, seizure, CVA, palpatations, mental health, musculoskeletal)? @ -Covid, influenza, RSV, viral URI, pneumonia, this list is not All-Inclusive EKG interpreted by me (3pts min.). @ -none X-rays interpreted by me (1pt min.). @ -None done CT interpreted by me (1pt min.). @ -None done U/S interpreted by me (1pt. min.). @ -None done What testing was considered but not performed or refused? (CT, X-rays, U/S, labs)? Why? @ -None What meds were considered but not given or refused? Why? @ -None Did you discuss the management of the patient with other professionals (professionals i.e. , PA, LINER HELPER, lab, RT, psych nurse, bilingual social worker, flying i instructor, teacher, sales promotion officer, rehabilitation caseworker)? Give summary @ -No Was smoking cessation discussed for >3mins.? @ -No Was critical care preformed (if so, how long)? @ -No Were there social determinants of health that impacted care today? How? (Homelessness, low income, unemployed, alcoholism, drug addiction, transport ation, low edu. Level, literacy, decrease access to med. care, fpc, rehab)? @ -No Was there de-escalation of care discussed even if they declined (Discuss DNR or withdrawal of care, Hospice)? DNR status @ -No What co-morbidities impacted this encounter? (DM, HTN, Smoking, COPD, CAD, Cancer, CVA, ARF, Chemo, Hep., AIDS, mental health diagnosis, sleep apnea, morbid obesity)? @ -None Was patient admitted / discharged? Hospital course, mention meds given and route, prescriptions, significant lab abnormalities, going to OR and other pertinent info. @ -Discharged. Patient presented to emergency department with chief complaint of muscle aches, cough, congestion 2 days. Influenza, RSV negative. Covid positive. Patient is not in any distress at this time. Patient will be discharged home with prescription for antiviral medication. Patient stable at time of discharge. Case discussed with Dr. Mendez Undiagnosed new problem with uncertain prognosis? @ -No Drug Therapy requiring intensive monitoring for toxicity (Heparin, Nitro, Insulin, Cardizem)? @ -No Were any procedures done? @ -No Diagnosis/symptom? @ -covid Acute, or Chronic, or Acute on Chronic? @ -acute Uncomplicated (without systemic symptoms) or Complicated (systemic symptoms)? @ -uncomplicated Side effects of treatment? @ -No Exacerbation, Progression, or Severe Exacerbation? @ -No Poses a threat to life or bodily function? How? (Chest pain, USA, VT, pneumonia, PE, COPD, DKA, ARF, appy, cholecystitis, CVA, Diverticulitis, Homicidal, Suicidal, threat to staff... and all critical care pts) @ -No (Maryana Simental) - Lab Data Lab Results 04/16/23 Range/Units 18:15 Influenza Type A (PCR) Not Detected (Not Detectd) Influenza Type B (PCR) Not Detected (Not Detectd) RSV (PCR) Not Detected (Not Detectd) SARS-CoV-2 (PCR) Detected A (Not Detectd) Disposition <Meir Black - Last Filed: 04/16/23 18:39> Is patient prescribed a controlled substance at d/c from ED?: No <Maryana Simental - Last Filed: 04/16/23 21:01> Clinical Impression: COVID-19 Disposition: HOME SELF-CARE Condition: Stable Instructions (If sedation given, give patient instructions): COVID-19 (Coronavirus Disease 2019) (ED) Additional Instructions: Please follow up with your primary care provider. Return to the emergency department for new or worsening symptoms. Prescriptions: Nirmatrelvir/Ritonavir [Paxlovid 2X150 mg-100 mg (Eua)] See Rx Instructions .ROUTE .COMPLEX #30 tab Referrals: Andrea Vo DO [Primary Care Provider] - 1-2 days
[2023-04-16 21:17] VITALS: BP 146/76; PULSE 65; RESP 18; TEMP 98
== END 2023-04-16 21:08 | disposition home or self-care (01) ==
LOC: EC 17:31
DX: U07.1 COVID-19 (principal); J45.909 Unspecified asthma, uncomplicated; E11.9 Type 2 diabetes mellitus without complications; K21.9 Gastro-esophageal reflux disease without esophagitis; E78.5 Hyperlipidemia, unspecified; I10 Essential (primary) hypertension; M19.90 Unspecified osteoarthritis, unspecified site; E07.9 Disorder of thyroid, unspecified; F41.9 Anxiety disorder, unspecified; F32.A Depression, unspecified; Z88.0 Allergy status to penicillin; Z88.8 Allergy status to other drugs, medicaments and biological substances; Z88.5 Allergy status to narcotic agent; Z88.2 Allergy status to sulfonamides; Z79.84 Long term (current) use of oral hypoglycemic drugs; Z79.890 Hormone replacement therapy; Z79.4 Long term (current) use of insulin; Z79.899 Other long term (current) drug therapy
CPT/HCPCS: 87636; 99284

== ENCOUNTER → 2023-12-15 | Outpatient (CLI) | payer MEDICARE, OTHER | LOC: CPPFTMAIN 15:54 | PROVIDERS: ATTEND Pediatrics | DX: J45.909 Unspecified asthma, uncomplicated (principal); Z88.0 Allergy status to penicillin; Z88.8 Allergy status to other drugs, medicaments and biological substances; Z88.5 Allergy status to narcotic agent; Z88.2 Allergy status to sulfonamides; Z79.899 Other long term (current) drug therapy | CPT/HCPCS: 94060; 94726; 94729 ==

== ENCOUNTER → 2023-12-15 | Outpatient (CLI) | payer MEDICARE, OTHER ==
[2023-12-15 16:16] LABS: Chol/HDL Ratio 4.31 Ratio; LDL Cholesterol,Calculated 163.9 mg/dL (0.0-131.0)
[2023-12-15 19:42] LABS: Microalbumin Creatinine Ratio <39 mg/g Cr (0-30); Urine Creatinine 30.5 mg/dL (28.0-217.0)
== END | disposition home or self-care (01) ==
LOC: LABWHC1 12:16
PROVIDERS: ATTEND Registered Nurse
DX: Z11.59 Encounter for screening for other viral diseases (principal); E11.22 Type 2 diabetes mellitus with diabetic chronic kidney disease; N18.9 Chronic kidney disease, unspecified; E03.9 Hypothyroidism, unspecified; Z79.4 Long term (current) use of insulin
CPT/HCPCS: 36415; 80061; 82043; 82570; 84443; 86803

== ENCOUNTER → 2023-12-18 | Outpatient (CLI) | payer MEDICARE, OTHER ==
--- NOTE | 2024-01-11 04:12 | BD ---
EXAMINATION TYPE: Axial Bone Density DATE OF EXAM: 12/18/2023 CLINICAL HISTORY: 68 years old Female. ICD-10 CODE: Z78.0 MENOPAUSAL STATE Height: 64.25 Weight: 237 FRAX RISK QUESTIONS: Alcohol (3 or more units per day): no Family History (Parent hip fracture): no Glucocorticoids (More than 3mos): no (Ex: prednisone, prednisolone, methylprednisolone, dexamethasone, and hydrocortisone). History of Fracture in Adulthood: tib-fib, finger Secondary Osteoporosis: 1. Type 1 Diabetes: no 2. Hyperthyroidism: no 3. Menopause before 45: no 4. Malnutrition: no 5. Chronic liver disease: no Rheumatoid Arthritis: yes Current Tobacco Use: no RISK FACTORS HISTORY OF: Hip Fracture (Right/Left): no Spine Fracture: no History of Wrist Fracture: no Surgery to Spine/Hip(right/left)/Wrist (right/left): no MEDICATIONS: Thyroid Medications: Levothyroxine How Long: past 3 years Osteoporosis Medications: no EXAM MEASUREMENTS: Bone mineral densitometry was performed using the [employer] System. Bone mineral density as measured about the Lumbar spine is: ----- L1-L4(G/cm2): 1.301 T Score Values are as follows: ----- L1: -0.9 ----- L2: 0.5 ----- L3: 1.4 ----- L4: 2.6 ----- L1-L4: 1.0 Z Score Values are as follows: ----- L1: -0.4 ----- L2: 1.0 ----- L3: 1.9 ----- L4: 3.0 ----- L1-L4: 1.5 Baseline Study Bone mineral density about the R hip (g/cm2): 1.034 Bone mineral density about the L hip (g/cm2): 1.170 T Score values are as follows: -----R Neck: -0.3 -----L Neck: 0.6 -----R Total: 0.2 -----L Total: 1.3 Z Score values are as follows: -----R Neck: 0.5 -----L Neck: 1.4 -----R Total: 0.7 -----L Total: 1.7 Baseline Study FRAX%s: The graph provided illustrates a 13.5% chance for a major osteoporotic fx and a 0.6% chance f or the hips probability for fx in 10 years time. IMPRESSION: Normal (Values between +1 and -1 indicate normal bone mass). Consider repeating this study in 5 year s or sooner if there is some new clinical indication. NOTE: T-SCORE=SD OF THE YOUNG ADULT MEAN.
--- NOTE | 2024-01-13 11:30 | MM ---
Reason for Exam: Screening (asymptomatic). Last mammogram was performed 2 year(s) and 4 month(s) ago. Patient History: Menarche at age 13. First Full-Term at age 22. Left ovary removed at age 45. Right ovary removed at age 45. Hysterectomy at age 47. Postmenopausal. Patient used Hormonal Contraceptives for 1 year. Core Biopsy on the Right side. Core Biopsy on the Right side. 01/04/2002, Benign Stereotactic Core Biopsy on the right side. 12/04/2000, Benign Stereotactic Core Biopsy on the right side. Mother had breast cancer. Sister had breast cancer. Risk Values: Rosa Elena 5 year model risk: 11.0%. NCI Lifetime model risk: 33.9%. Prior Study Comparison: 01/25/2018 Bilateral Screening Mammogram, [facility]. 12/07/2019 Bilateral Screening Mammogram, [facility]. 09/10/2021 Bilateral Screening Mammogram, [facility]. Tissue Density: The breasts are almost entirely fatty. Findings: Analyzed By CAD. Right breast: There is no suspicious group of microcalcifications or new suspicious mass. Left breast: There is no suspicious group of microcalcifications or new suspicious mass. Overall Assessment: Negative, BI-RAD 1 Management: Screening Mammogram of both breasts in [address] [facility] will attempt to contact patient to return for supplemental views and ultrasound if indicated. Patient should continue monthly self-breast exams. A clinical breast exam by your physician is recommended on an annual basis. This exam should not preclude additional follow-up of suspicious palpable abnormalities. Note on Rosa Elena scores and lifetime risk: 1. A Rosa Elena score greater than 3% is considered moderate risk. If this is the case, consider specialist referral to assess eligibility for a risk reducing agent. 2. If overall lifetime risk for the development of breast cancer is 20% or higher, the patient may qualify for future screening with alternating mammogram and breast MRI. Electronically signed and approved by: Josias Buckley DO
== END | disposition home or self-care (01) ==
LOC: RADBDWWP 13:57
PROVIDERS: ATTEND Pediatrics
DX: Z12.31 Encounter for screening mammogram for malignant neoplasm of breast (principal); Z78.0 Asymptomatic menopausal state; Z80.3 Family history of malignant neoplasm of breast; Z90.721 Acquired absence of ovaries, unilateral
CPT/HCPCS: 77063; 77067; 77080

== ENCOUNTER → 2024-02-05 | Outpatient (CLI) | payer MEDICARE, OTHER | END | disposition home or self-care (01) | LOC: LABWHC1 15:02 | PROVIDERS: ATTEND Registered Nurse | DX: E11.22 Type 2 diabetes mellitus with diabetic chronic kidney disease (principal); E11.3313 Type 2 diabetes mellitus with moderate nonproliferative diabetic retinopathy with macular edema, bilateral; N18.9 Chronic kidney disease, unspecified | CPT/HCPCS: 36415; 82306 ==

== ENCOUNTER → 2024-03-07 | Outpatient (CLI) | payer MEDICARE, OTHER | END | disposition home or self-care (01) | LOC: LABWHC1 15:35 | PROVIDERS: ATTEND Registered Nurse | CPT/HCPCS: 36415; 82306; 83036 ==

== ENCOUNTER → 2024-11-22 | Outpatient (CLI) | payer MEDICARE, OTHER ==
[2024-11-22 15:39] LABS: Basophils # (A) 0.06 X 10*3/uL (0.00-0.10); Basophils % (A) 0.8 %; Eosinophils # (A) 0.22 X 10*3/uL (0.04-0.35); Eosinophils % (A) 2.9 %; HCT 42.8 % (37.2-46.3); HGB 14.5 g/dL (12.0-15.0); Immature Grans, Automated 0.50 %; Lymphocytes # (A) 1.86 X 10*3/uL (0.90-5.00); Lymphocytes % (A) 24.5 %; MCH 28.7 pg (27.0-32.0); MCHC 33.9 g/dL (32.0-37.0); MCV 84.8 FL (80.0-97.0); Monocytes # (A) 0.65 X 10*3/uL (0.20-1.00); Monocytes % (A) 8.6 %; NRBC Per 100 WBC 0 X 10*3/uL (0.00-0.01); Neutrophils # (A) 4.75 X 10*3/uL (1.80-7.70); Neutrophils % (A) 62.7 %; Platelet Count 329 X 10*3/uL (140-440); RBC 5.05 X 10*6/uL (4.10-5.20); RDW 13.2 % (11.5-14.5); WBC 7.58 X 10*3/uL (4.50-10.00)
[2024-11-22 15:40] LABS: Cholesterol 172.00 mg/dL (0.00-200.00); HDL Cholesterol 40.50 mg/dL (40.00-60.00); LDL Cholesterol,Calculated 62.1 mg/dL (0.0-131.0); Triglycerides 347.00 mg/dL (0.00-149.00); Uric Acid 3.7 mg/dL (2.9-7.7); VLDL Calculation 69.40 mg/dL (5.00-40.00)
[2024-11-22 15:41] LABS: ALT 32 U/L (8-44); AST 21 U/L (13-35); Albumin 4.4 g/dL (3.8-4.9); Albumin/Globulin Ratio 2.75 Ratio (1.60-3.17); Alkaline Phosphatase 100 U/L (41-126); Anion Gap 13.70 mmol/L (4.00-12.00); BUN/Creat Ratio 13.64 Ratio (12.00-20.00); Blood Urea Nitrogen 15.0 mg/dL (9.0-27.0); Calcium 9.4 mg/dL (8.7-10.3); Carbon Dioxide 25.3 mmol/L (21.6-31.8); Chloride 96 mmol/L (96-109); Globulin 1.6 g/dL (1.6-3.3); Glucose 449 mg/dL (70-110); Potassium 4.6 mmol/L (3.5-5.5); Sodium 135 mmol/L (135-145); T4, Free (Free Thyroxine) 1.43 ng/dL (0.80-1.80); Total Protein 6.0 g/dL (6.2-8.2); Vitamin B12 1214.0 pg/mL (200.0-944.0)
[2024-11-22 20:45] LABS: Cyclic Citrull Pep IgG Unit <1.5 U/mL (<=3.9)
[2024-11-23 13:42] LABS: HLA B27 NEGATIVE
== END | disposition home or self-care (01) ==
LOC: LABWHC1 11:45
PROVIDERS: ATTEND Family Medicine
DX: I10 Essential (primary) hypertension (principal); G89.4 Chronic pain syndrome; G47.13 Recurrent hypersomnia; E11.65 Type 2 diabetes mellitus with hyperglycemia; E55.9 Vitamin D deficiency, unspecified; E03.9 Hypothyroidism, unspecified; R00.0 Tachycardia, unspecified
CPT/HCPCS: 36415; 80053; 80061; 82306; 82533; 82607; 83036; 84439; 84443; 84550; 85025; 85652; 86038; 86140; 86200; 86812

== ENCOUNTER 2024-12-03 15:51 | Emergency (ER) | payer MEDICARE, OTHER ==
[2024-12-03 16:05] VITALS: TEMP 98.3
--- NOTE | 2024-12-03 16:39 | ED ---
Female Urogenital HPI - General Chief complaint: Urogenital Stated complaint: Urogenital Time Seen by Provider: 12/03/24 16:00 Source: patient, RN notes reviewed Mode of arrival: ambulatory Limitations: no limitations - History of Present Illness Initial comments: 69-year-old female presents emerged part complaint of abdominal pain. Patient states that she did see her primary care physician who placed her on Cipro and Flagyl. Patient states she was told to go emergency room symptoms worsen. No history of diverticulitis she states she had loose stool no significant urinary frequency mild dysuria no fevers or chills no chest pain or shortness of breath. - Related Data Home Medications Medication Instructions Recorded Confirmed ARIPiprazole [Abilify] 15 mg PO DAILY 10/21/16 10/02/22 Albuterol Inhaler [Ventolin Hfa 2 puff INHALATION Q6HR PRN 10/21/16 10/02/22 Inhaler] DULoxetine HCL [Cymbalta] 60 mg PO BID 10/21/16 10/02/22 Levothyroxine Sodium 112 mcg PO DAILY 10/21/16 10/02/22 metFORMIN HCL [Glucophage] 1,000 mg PO BID 10/21/16 10/02/22 LORazepam [Ativan] 0.5 mg PO DAILY PRN 01/27/18 10/02/22 Atorvastatin [Lipitor] 20 mg PO DAILY 11/15/21 10/02/22 Brexpiprazole [Rexulti] 0.5 mg PO DAILY 11/15/21 10/02/22 Estrogens, Conjugated Cream 1 applicator VAGINAL HS 11/15/21 10/02/22 [Premarin Vaginal Cream] Insulin Aspart [NovoLOG Flexpen] 10 units SQ AC-TID 11/15/21 10/02/22 Insulin Glargine (Lantus) [Lantus 65 unit SQ HS 11/15/21 10/02/22 Vial] Melatonin 5 mg PO HS 11/15/21 10/02/22 Montelukast [Singulair] 10 mg PO HS 11/15/21 10/02/22 Multivitamins, Thera [Multivitamin 1 tab PO DAILY 11/15/21 10/02/22 (formulary)] Naproxen Sodium [Aleve] 220 - 440 mg PO BID PRN 11/15/21 10/02/22 Tougaloo-3 Fatty Acids [Tougaloo-3] 2,000 mg PO BID 11/15/21 10/02/22 Potassium Gluconate [Potassium 595 mg PO DAILY 11/15/21 10/02/22 Gluconate ER] Semaglutide [Rybelsus] 14 mg PO DAILY 11/15/21 10/02/22 amLODIPine [Norvasc] 5 mg PO DAILY 11/15/21 10/02/22 lisinopriL [Zestril] 30 mg PO DAILY 11/15/21 10/02/22 Previous Rx's Medication Instructions Recorded traMADol HCL 50 mg PO Q8H PRN 30 Days #90 tab 09/08/22 Nirmatrelvir/Ritonavir [Paxlovid See Rx Instructions .ROUTE 04/16/23 2X150 mg-100 mg (Eua)] .COMPLEX #30 tab Allergies Allergy/AdvReac Type Severity Reaction Status Date / Time penicillin G Allergy Rash/Hives, Verified 04/16/23 18:08 itching, dyspnea JOSE Inhibitors AdvReac Rash/Hives Verified 04/16/23 18:08 morphine AdvReac Rash/Hives Verified 04/16/23 18:08 rofecoxib [From Vioxx] AdvReac Rash/Hives Verified 04/16/23 18:08 Sulfa (Sulfonamide AdvReac Rash/Hives Verified 04/16/23 18:08 Antibiotics) Review of Systems ROS Statement: Those systems with pertinent positive or pertinent negative responses have been documented in the HPI. ROS Other: All systems not noted in ROS Statement are negative. Past Medical History Past Medical History: Asthma, Diabetes Mellitus, Deep Vein Thrombosis (DVT), GERD/Reflux, Hyperlipidemia, Hypertension, Musculoskeletal Disorder, Osteoarthritis (OA), Renal Disease, Sleep Apnea/CPAP/BIPAP, Thyroid Disorder Additional Past Medical History / Comment(s): Cervical disc pain, bilat shoulder pain; occ NT arms, legs.. Not using cpap. Edema BLE. Poss DVT hx. History of Any Multi-Drug Resistant Organisms: None Reported Past Surgical History: Appendectomy, Cholecystectomy, Hysterectomy, Orthopedic Surgery, Tubal Ligation Additional Past Surgical History / Comment(s): ORIF Rt lower leg/ankle. PAIN CLINIC PROCEURES Past Anesthesia/Blood Transfusion Reactions: No Reported Reaction Past Psychological History: Anxiety, Depression Smoking Status: Never smoker - Past Family History Father Family Medical History: Cancer Mother Family Medical History: Cancer Brother(s) Family Medical History: Cancer Additional Family Medical History / Comment(s): prostate cancer General Exam Limitations: no limitations General appearance: alert, in no apparent distress Head exam: Present: atraumatic, normocephalic, normal inspection Eye exam: Present: normal appearance, PERRL, EOMI. Absent: scleral icterus, conjunctival injection, periorbital swelling Respiratory exam: Present: normal lung sounds bilaterally. Absent: respiratory distress, wheezes, rales, rhonchi, stridor Cardiovascular Exam: Present: regular rate, normal rhythm, normal heart sounds. Absent: systolic murmur, diastolic murmur, rubs, gallop, clicks GI/Abdominal exam: Present: soft, tenderness, normal bowel sounds. Absent: distended, guarding, rebound, rigid Back exam: Absent: CVA tenderness (R), CVA tenderness (L) Neurological exam: Present: alert, oriented X3 Course Vital Signs 12/03/24 12/03/24 16:03 18:20 Temperature 98.3 F Pulse Rate 95 84 Respiratory 16 16 Rate Blood Pressure 180/105 151/99 O2 Sat by Pulse 98 95 Oximetry Medical Decision Making - Medical Decision Making Was pt. sent in by a medical professional or institution (MARGIE Hood, HOSPICE NURSE PRACTITIONER, urgent care, hospital, or alf...) When possible be specific @ -No Did you speak to anyone other than the patient for history (EMS, parent, family, police, friend...)? What history was obtained from this source @ -No Did you review nursing and triage notes (agree or disagree)? Why? @ -I reviewed and agree with nursing and triage notes Were old charts reviewed (outside hosp., previous admission, EMS record, old EKG, old radiological studies, urgent care reports/EKG's, alf records)? Report findings @ -No old charts were reviewed Differential Diagnosis (chest pain, altered mental status, abdominal pain women, abdominal pain men, vaginal bleeding, weakness, fever, dyspnea, syncope, headache, dizziness, GI bleed, back pain, seizure, CVA, palpatations, mental health, musculoskeletal)? @ -Differential Abdominal Pain Women: Appendicitis, Cholecystitis, diverticulosis, ischemic bowel, pancreatitis, hepatitis, UTI, gastroenteritis, AAA, incarcerated hernia, bowel obstruction, constipation, inflammatory bowel, hepatitis, peptic ulcer disease, splenic infarction, perforated viscus, vulvitis, ovarian torsion, PID, kidney stone, placenta abruption, this is not meant to be an all-inclusive list EKG interpreted by me (3pts min.). @ -None X-rays interpreted by me (1pt min.). @ -None done CT interpreted by me (1pt min.). @ -CT pelvis with contrast showing no acute intra-abdominal process. U/S interpreted by me (1pt. min.). @ -None done What testing was considered but not performed or refused? (CT, X-rays, U/S, labs)? Why? @ -None What meds were considered but not given or refused? Why? @ -None Did you discuss the management of the patient with other professionals (nanette wise i.e. , PA, HOSPICE NURSE PRACTITIONER, lab, RT, psych nurse, director of social work, catering administrative assistant, teacher, corporate trust officer, manager rn case)? Give summary @ -No Was smoking cessation discussed for >3mins.? @ -No Was critical care preformed (if so, how long)? @ -No Were there social determinants of health that impacted care today? How? (Homelessness, low income, unemployed, alcoholism, drug addiction, transportation, low edu. Level, literacy, decrease access to med. care, fpc, rehab)? @ -No Was there de-escalation of care discussed even if they declined (Discuss DNR or withdrawal of care, Hospice)? DNR status @ -No What co-morbidities impacted this encounter? (DM, HTN, Smoking, COPD, CAD, Cancer, CVA, ARF, Chemo, Hep., AIDS, mental health diagnosis, sleep apnea, morbid obesity)? @ -None Was patient admitted / discharged? Hospital course, mention meds given and route, prescriptions, significant lab abnormalities, going to OR and other pertinent info. @ -Discharged patient presented for abdominal pain. Labs and CT unremarkable analysis unrevealing acute findings. Patient may be having abdominal cramping, worsening pain from initial bites or needs antibiotics. We discussed following up and return for as discussed. Undiagnosed new problem with uncertain prognosis? @ -No Drug Therapy requiring intensive monitoring for toxicity (Heparin, Nitro, Insulin, Cardizem)? @ -No Were any procedures done? @ -No Diagnosis/symptom? @ -Abdominal pain Acute, or Chronic, or Acute on Chronic? @ -Acute Uncomplicated (without systemic symptoms) or Complicated (systemic symptoms)? @ -complicated Side effects of treatment? @ -No Exacerbation, Progression, or Severe Exacerbation? @ -No Poses a threat to life or bodily function? How? (Chest pain, [place], [place], pneumonia, PE, COPD, DKA, ARF, appy, cholecystitis, CVA, Diverticulitis, Homicidal, Suicidal, threat to staff... and all critical care pts) @ -No - Lab Data Result diagrams: 12/03/24 16:47 12/03/24 16:47 Lab Results 12/03/24 12/03/24 12/03/24 Range/Units 16:47 16:47 16:47 WBC 8.03 (4.50-10.00) 10*3/uL RBC 4.96 (4.10-5.20) 10*6/uL Hgb 14.6 (12.0-15.0) g/dL Hct 40.9 (37.2-46.3) % MCV 82.5 (80.0-97.0) fL MCH 29.4 (27.0-32.0) pg MCHC 35.7 (32.0-37.0) g/dL Plt Count 309 (140-440) 10*3/uL MPV 8.6 L (9.5-12.2) fL Immature Gran % (Auto) 0.4 % Neutrophils % 64.0 % Lymphocytes % 24.4 % Monocytes % 7.6 % Eosinophils % 2.9 % Basophils % 0.7 % Immature Gran # 0.03 (0.00-0.04) 10*3/uL Neutrophils # 5.14 (1.80-7.70) 10*3/uL Lymphocytes # 1.96 (0.90-5.00) 10*3/uL Monocytes # 0.61 (0.20-1.00) 10*3/uL Eosinophils # 0.23 (0.04-0.35) 10*3/uL Basophils # 0.06 (0.00-0.10) 10*3/uL Sodium 138 (137-145) mmol/L Potassium 3.8 (3.5-5.1) mmol/L Chloride 102 (98-107) mmol/L Carbon Dioxide 25 (22-30) mmol/L Anion Gap 11 mmol/L BUN 6 L (7-17) mg/dL Creatinine 0.79 (0.52-1.04) mg/dL Est GFR (CKD-EPI)AfAm >90 (>60 ml/min/1.73 sqM) Est GFR (CKD-EPI)NonAf 78 (>60 ml/min/1.73 sqM) Glucose 145 H (74-99) mg/dL Plasma Lactic Acid Canelo 1.3 (0.7-2.0) mmol/L Calcium 9.7 (8.4-10.2) mg/dL Total Bilirubin 0.6 (0.2-1.3) mg/dL AST 38 H (14-36) U/L ALT 40 H (4-34) U/L Alkaline Phosphatase 83 (38-126) U/L Total Protein 6.5 (6.3-8.2) g/dL Albumin 4.1 (3.5-5.0) g/dL Lipase 25 (23-300) U/L Urine Color Urine Appearance (Clear) Urine pH (5.0-8.0) Ur Specific [place] (1.001-1.035) Urine Protein (Negative) Urine Glucose (UA) (Negative) Urine Ketones (Negative) Urine Blood (Negative) Urine Nitrite (Negative) Urine Bilirubin (Negative) Urine Urobilinogen (<2.0) mg/dL Ur Leukocyte Esterase (Negative) Urine WBC (0-5) /hpf Ur Squamous Epith Cells (0-4) /hpf Urine Bacteria (None) /hpf 12/03/24 Range/Units 16:58 WBC (4.50-10.00) 10*3/uL RBC (4.10-5.20) 10*6/uL Hgb (12.0-15.0) g/dL Hct (37.2-46.3) % MCV (80.0-97.0) fL MCH (27.0-32.0) pg MCHC (32.0-37.0) g/dL Plt Count (140-440) 10*3/uL MPV (9.5-12.2) fL Immature Gran % (Auto) % Neutrophils % % Lymphocytes % % Monocytes % % Eosinophils % % Basophils % % Immature Gran # (0.00-0.04) 10*3/uL Neutrophils # (1.80-7.70) 10*3/uL Lymphocytes # (0.90-5.00) 10*3/uL Monocytes # (0.20-1.00) 10*3/uL Eosinophils # (0.04-0.35) 10*3/uL Basophils # (0.00-0.10) 10*3/uL Sodium (137-145) mmol/L Potassium (3.5-5.1) mmol/L Chloride (98-107) mmol/L Carbon Dioxide (22-30) mmol/L Anion Gap mmol/L BUN (7-17) mg/dL Creatinine (0.52-1.04) mg/dL Est GFR (CKD-EPI)AfAm (>60 ml/min/1.73 sqM) Est GFR (CKD-EPI)NonAf (>60 ml/min/1.73 sqM) Glucose (74-99) mg/dL Plasma Lactic Acid Canelo (0.7-2.0) mmol/L Calcium (8.4-10.2) mg/dL Total Bilirubin (0.2-1.3) mg/dL AST (14-36) U/L ALT (4-34) U/L Alkaline Phosphatase (38-126) U/L Total Protein (6.3-8.2) g/dL Albumin (3.5-5.0) g/dL Lipase (23-300) U/L Urine Color Colorless Urine Appearance Cloudy H (Clear) Urine pH 5.5 (5.0-8.0) Ur Specific [place] 1.003 (1.001-1.035) Urine Protein Negative (Negative) Urine Glucose (UA) Negative (Negative) Urine Ketones Negative (Negative) Urine Blood Negative (Negative) Urine Nitrite Negative (Negative) Urine Bilirubin Negative (Negative) Urine Urobilinogen <2.0 (<2.0) mg/dL Ur Leukocyte Esterase Negative (Negative) Urine WBC <1 (0-5) /hpf Ur Squamous Epith Cells <1 (0-4) /hpf Urine Bacteria Occasional H (None) /hpf Disposition Clinical Impression: Abdominal pain Disposition: HOME SELF-CARE Condition: Stable Instructions (If sedation given, give patient instructions): Abdominal Pain (ED) Additional Instructions: Please return to the Emergency Department if symptoms worsen or any other concerns. Is patient prescribed a controlled substance at d/c from ED?: No Referrals: Amy Mccoy MD [Primary Care Provider] - 1-2 days Time of Disposition: 18:40
[2024-12-03 16:50] LABS: Basophils # (A) 0.06 10*3/uL (0.00-0.10); Basophils % (A) 0.7 %; Eosinophils # (A) 0.23 10*3/uL (0.04-0.35); Eosinophils % (A) 2.9 %; HCT 40.9 % (37.2-46.3); HGB 14.6 g/dL (12.0-15.0); Lymphocytes # (A) 1.96 10*3/uL (0.90-5.00); Lymphocytes % (A) 24.4 %; MCH 29.4 pg (27.0-32.0); MCHC 35.7 g/dL (32.0-37.0); MCV 82.5 fL (80.0-97.0); Monocytes # (A) 0.61 10*3/uL (0.20-1.00); Monocytes % (A) 7.6 %; Neutrophils # (A) 5.14 10*3/uL (1.80-7.70); Neutrophils % (A) 64.0 %; Platelet Count 309 10*3/uL (140-440); RBC 4.96 10*6/uL (4.10-5.20); RDW 13.2 % (11.5-14.5); WBC 8.03 10*3/uL (4.50-10.00)
[2024-12-03] MEDS: ONDANSETRON 4 MG/2 ML VIAL IVP STA (16:52)
[2024-12-03] MEDS: KETOROLAC 15 MG/ML 1 ML VIAL IVP STA (16:53)
[2024-12-03] MEDS: SODIUM CHLORIDE 0.9% 1,000 ML IV ONE (16:53)
[2024-12-03 17:10] LABS: Bacteria,Urine Occasional /hpf; Bilirubin,Urine Negative (Negative); Blood,Urine Negative (Negative); Color,Urine Colorless; Glucose,Urine (UA) Negative (Negative); Ketones,Urine Negative (Negative); Leukocyte Esterase,Urine Negative (Negative); Nitrite,Urine Negative (Negative); PH, Urine 5.5 (5.0-8.0); Protein,Urine Negative (Negative); Specific Gravity,Urine 1.003 (1.001-1.035); Squamous Epithelial Cell,Urine <1 /hpf (0-4); Urobilinogen,Urine <2.0 mg/dL (<2.0); WBC,Urine <1 /hpf (0-5)
[2024-12-03 17:15] LABS: ALT 40 U/L (4-34); AST 38 U/L (14-36); African American GFR (CKD) >90 (>60 ml/min/1.73 sqM); Albumin 4.1 g/dL (3.5-5.0); Alkaline Phosphatase 83 U/L (38-126); Anion Gap 11 mmol/L; Blood Urea Nitrogen 6 mg/dL (7-17); Calcium 9.7 mg/dL (8.4-10.2); Carbon Dioxide 25 mmol/L (22-30); Chloride 102 mmol/L (98-107); Glucose 145 mg/dL (74-99); Lipase 25 U/L (23-300); Non-African American GFR(CKD) 78 (>60 ml/min/1.73 sqM); Potassium 3.8 mmol/L (3.5-5.1); Sodium 138 mmol/L (137-145); Total Protein 6.5 g/dL (6.3-8.2)
[2024-12-03 18:21] VITALS: PULSE 84
--- NOTE | 2024-12-03 18:30 | CT ---
EXAMINATION TYPE: CT abdomen pelvis w con DATE OF EXAM: 12/03/2024 5:46 PM COMPARISON: None available. CLINICAL INDICATION: Female, 69 years old with history of abdominal pain; suprapubic pain right cva t enderness dysuria urgency frequency. on antibiotics symptoms worsen TECHNIQUE: Axial CT abdomen pelvis w con;Sagittal and coronal reformats were created on a separate w orkstation. Contrast used:100 ml mL of Isovue 300 with IV Contrast, (none if empty) Oral contrast used: without Oral Contrast (none if empty) CT DLP: 1774.4 mGycm, Automated exposure control for dose reduction was used. FINDINGS: LOWER CHEST: Unremarkable ABDOMEN LIVER: Unremarkable GALLBLADDER AND BILE DUCTS: The gallbladder is surgically absent. PANCREAS: Unremarkable. SPLEEN: Unremarkable. ADRENAL GLANDS: Unremarkable. KIDNEYS AND URETERS: No evidence of hydronephrosis or renal calculus. The ureters are unremarkable. PELVIS BLADDER: No evidence for wall thickening or mass given limitations of exam. REPRODUCTIVE: The uterus is surgically absent. ABDOMEN & PELVIS STOMACH AND BOWEL: Stomach and duodenum are unremarkable. No evidence of bowel obstruction. Small hia rosie hernia. PERITONEUM/RETROPERITONEUM: No evidence of pneumoperitoneum or free fluid. VASCULATURE: No evidence of aortic aneurysm. MUSCULOSKELETAL: No acute osseous abnormalities LYMPH NODES: No gross evidence for lymphadenopathy. SOFT TISSUE/ABDOMINAL WALL: Unremarkable IMPRESSION: No acute abnormality in the abdomen/pelvis or CT findings to explain reported symptoms. [facility], , 12/03/2024 6:28 PM
[2024-12-03 19:01] VITALS: BP 164/96; RESP 18
== END 2024-12-03 19:02 | disposition home or self-care (01) ==
LOC: EC 15:51
DX: R10.9 Unspecified abdominal pain (principal); Z88.0 Allergy status to penicillin; Z88.1 Allergy status to other antibiotic agents; Z88.2 Allergy status to sulfonamides; Z88.5 Allergy status to narcotic agent; Z88.8 Allergy status to other drugs, medicaments and biological substances
CPT/HCPCS: 36415; 80053; 83605; 83690; 85025; 81001; 74177; 99284; 96374; 96375; 96361; J2405; J1885; Q9967